=== PATIENT | female | born 1955 | race Asian ===

== ENCOUNTER → 2022-01-15 | Outpatient (CLI) | payer MEDICAID ==
[~2022-01-15] MED LIST: ACET160S2 PO; OSEL75 PO
== END | disposition home or self-care (01) ==
LOC: RADMN 12:26
PROVIDERS: ATTEND Family Medicine
DX: R13.10 Dysphagia, unspecified (principal)
CPT/HCPCS: 74230; 92611

== ENCOUNTER 2024-05-11 12:26 | Emergency (ER) | payer MEDICAID ==
[~2024-05-11] VITALS: Ht 157.5 cm; Wt 52.3 kg
[~2024-05-11 12:26] MED LIST changes: -OSEL75 PO; +OSEL75CA45 PO
[2024-05-11 12:32] VITALS: BP 128/84; PULSE 62; RESP 18; TEMP 98.5; O2SAT 99
[2024-05-11] MEDS ORDERED: ATOR20TA65 PO (12:35)
[2024-05-11] MEDS ORDERED: ALEN70TA80 PO (12:35)
[2024-05-11] MEDS ORDERED: AMLO2.5T29 PO (12:35)
== END 2024-05-11 17:11 | disposition home or self-care (01) ==
LOC: EMS 12:26
DX: S00.81XA Abrasion of other part of head, initial encounter (principal); I10 Essential (primary) hypertension; W22.8XXA Striking against or struck by other objects, initial encounter; Y93.89 Activity, other specified; Y92.89 Other specified places as the place of occurrence of the external cause; Y99.8 Other external cause status
CPT/HCPCS: 70450; 99284